=== PATIENT | male | born 1945 | race Caucasian/White ===

== ENCOUNTER 2017-10-04 16:59 | Inpatient (IN) ==
--- NOTE | 2017-10-04 17:41 | Emergency Department Note ---
Disposition Clinical Impression: Elevated troponin Disposition: Admitted As Inpatient Condition: Fair Time of Disposition: 18:50 General Adult HPI - General Chief complaint: ED General Medical Stated complaint: High BP Time Seen by Provider: 10/04/17 17:06 Source: patient, EMS Limitations: no limitations Nursing Notes Reviewed: Yes Vital Signs Reviewed: Yes - History of Present Illness HPI Narrative: 71-year-old male presents emergency department via EMS from the OR. Patient went there with complaints of high blood pressure not complaining of any chest pain or any other symptoms. When evaluated there they did do basic lab work which showed an elevated troponin of 0.06 as I said no lab troponin came back at 0.085. This is the main reason they sent him over. Patient was given aspirin there. Patient has a history of lupus as well as chronic kidney disease due to lupus. He also has high blood pressure due to lupus. He recently was changed blood pressure medications partially 3 weeks ago and he had normal blood pressures approximately 1 week ago. His daughter checked his blood pressure yesterday and it was 200 systolic and also worried that it made him come in today. At the OR patient did have a blood pressure over 200 systolic. Due to this they diagnosed him with hypertensive urgency as well as the elevated troponin and transferred him here. Patient again when coming here is complaining of no chest pain or nausea or vomiting or shortness of breath. He says he feels fine as having any pain anywhere other than his normal rheumatoid arthritis. Patient's had no nausea or vomiting. He has no cardiac history never had a stress test never seen a physical therapist aide. Patient otherwise has no complaints including headache, blurry vision, neck pain, back pain, chest pain, shortness of breath, abdominal pain, pain or tingling going down the arms or legs, pain with urination, change in bowel movements, generalized weakness, fevers. Pain Scale: 0 - Related Data Allergies Allergy/AdvReac Type Severity Reaction Status Date / Time NSAIDS (Non-Steroidal Allergy Hives Verified 10/04/17 17:15 Anti-Inflamma Review of Systems: 10 point review of systems done and negative unless otherwise stated in history of present illness. All systems ED: reviewed and negative except as stated. Review of Systems: As Per HPI Past Medical History - Past Medical History Attestation: Yes The following information was validated with the patient. Medical history: Reports: arthritis, hypertension, RA, renal disease Psychiatric history: Reports: no psych history - Social History Smoking Status: Never smoker Smokeless Tobacco Status: Yes Alcohol use: Reports: none Drug use: Reports: none Physical Exam - General Limitations: no limitations General appearance: alert, in no apparent distress - Head Head exam: atraumatic, normocephalic, normal inspection - Eye Eye exam: Present: normal appearance, PERRL, EOMI - ENT ENT exam: normal exam, normal oropharynx, mucous membranes moist - Neck Neck exam: Present: normal inspection, full ROM, trachea midline - Chest Chest inspection: Present: normal inspection, symmetric chest wall rise - Respiratory Respiratory exam: Present: normal lung sounds bilaterally - Cardiovascular Cardiovascular exam: Present: regular rate, normal rhythm, normal heart sounds - Abdominal Exam Abdominal exam: Present: soft, Non-Tender. Absent: tenderness, distention, guarding, rebound, rigidity - Extremities Exam Extremities exam: Present: normal inspection, full ROM. Absent: tenderness, pedal edema - Expanded Lower Extremity Exam Neurovascular/Tendon exam: Absent: motor deficit, sensory deficit, tendon deficit - Back Exam Back exam: Present: normal inspection, full ROM. Absent: tenderness, CVA tenderness (R), CVA tenderness (L) - Neurological Exam Neurological exam: Present: alert, oriented X3 - Skin Skin exam: Present: warm, dry, intact, normal color Course Course Narrative: 71-year-old male presents emergency room via EMS from the OR for elevated troponin hypertension. Patient's labs are all done at the OR as well as chest x -ray. We will repeat an EKG here. Patient was hypertensive when he came in at 200 systolic with the elevated troponin patient does meet hypertensive emergency so we will treat him with 10 mg labetalol on the IV. Patient's most likely disposition will be admission for further evaluation. Vital Signs Temperature 98.1 F 10/04/17 17:07 Pulse Rate 62 10/04/17 17:07 Respiratory Rate 20 10/04/17 17:07 Blood Pressure 210/108 10/04/17 17:07 O2 Sat by Pulse Oximetry 97 10/04/17 17:07 Temperature 99.1 F 10/04/17 21:02 Pulse Rate 66 10/04/17 21:02 Respiratory Rate 14 10/04/17 21:02 Blood Pressure 189/82 10/04/17 21:02 O2 Sat by Pulse Oximetry 97 10/04/17 21:02 Oxygen Delivery Oxygen Delivery Room Air Medical Decision Making - MDM Narrative Medical decision making narrative: 71-year-old male presented to the emergency department complaining of elevated troponin here is not having any chest pain. Patient was sent here from the [facility] via EMS. He has a history of lupus. He also is hypertensive there at over 200 systolic. When he arrived here he was 200 systolic as well. At this time we are going to give him labetalol to help lower his blood pressure. It was repeated and it was 180 systolic. Patient has no chest pain at this time. 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 Patient did have a urine protein 300. Elevated BUNs of 44. Patient did have new EKG changes of T-wave depressions in lead V5 and V6. There is no old EKG to compare with to see if these are new. Due to the elevated troponin and EKG changes patient needed to be admitted for further evaluation. Patient was admitted to the hospitalist service in stable condition. I spoke with who agreed to set the patient to their service. Patient is now admitted in stable condition. Chest x-ray was done at the OR which read as no acute findings. The OR's chart was going with the patient to the floor. - Medical Records Medical records reviewed: Yes I reviewed the patient's medical records. - Lab Data Lab results reviewed: Yes I reviewed the patient's lab results. - Radiology Data Radiology results reviewed: Yes I reviewed the patient's radiology results. - EKG Data EKG #1 EKG attestation: Yes I reviewed and interpreted this EKG. Attestation Statement - Attestation Attestation: I, Guillermo Valdivia, examined this patient and my medical decision-making was reviewed with the MANAGER ENROLLMENT/PA/Advanced Practice Nurse/Resident Physician. I agree with the documented findings, disposition and treatment plan as described except to the extent set forth below. 8-year-old male presents emergency Department from the OR with concerns of elevated blood pressure and elevated troponin. Daughter noted BP to be high last night and this morning and brought him to the OR for further care and evaluation. Patient had elevated troponin at 0.06 on evaluation at the OR. Patient has no chest pain during my evaluation the emergency department. Patient has a history of chronic renal failure. Labetalol was initially ordered to control BP for a possible hypertensive emergency. Patient BP however improved prior to giving the medication to a systolic of 188. Patient will be admitted to the hospital for further care and evaluation.
[2017-10-04] MEDS: *HR* Labetalol 100 MG/20 ML MDV IVP ONE ×2 (18:10→18:13)
[2017-10-04] MEDS ORDERED: carBAMazepine 200 MG TABLET PO SCH (21:00)
[2017-10-04] MEDS ORDERED: Naloxone 0.4 MG/ML INJ IVP PRN (21:12)
[2017-10-04] MEDS ORDERED: CarBAMazepine 100 MG TABLET PO SCH (21:15)
--- NOTE | 2017-10-04 21:19 | Internal Med History&Physical ---
<Mir Vo - Last Filed: 10/04/17 21:16> Date of Encounter: 10/04/17 Time of Encounter: 21:16 Assessment and Plan (1) Asymptomatic hypertensive urgency Current visit: Yes Status: Acute Patient reports having systolic blood pressure in the 180s over the last 4 days. Additionally, reports a gradual increase in blood pressure over the last month. He denies missing any doses of medication. Blood pressure at 1800 systolic blood pressure 180s. He does have an elevation in serum creatinine however he does have CKD stage III , does not appear to be Hypertensive emergency Slowly decreased blood pressure to avoid cerebral or myocardial ischemia associated with rapid reduction Target SBP 150-170, target DBP greater than 80 less than 100-hydralazine every 2 hours 5 mg IV push Restart all home blood pressure medications Serial troponins and get EKG in the morning Continuous telemetry and every 4 hours vitals (2) Elevated troponin Current visit: Yes Status: Acute Likely due to demand ischemia. In having hypertensive urgency the last 4 days. Also has history of PKD stage III. Denies any chest pain or discomfort, no prior cardiac history and risk factors include smoking and hypertension. Given his clinical picture does not appear to be having a coronary event continue to further monitor troponins Serial troponin Continuous telemetry EKG in the morning (3) Hyperkalemia Current visit: Yes Status: Acute Hyperkalemic with potassium of 5.2. Has stage III kidney disease. Asymptomatic at this time, reporting no tachycardia, palpitations, numbness tingling, muscle cramping. A one-time dose of Kayexalate 15 g now and recheck potassium in the morning (4) CKD (chronic kidney disease) stage 3, GFR 30-59 ml/min Current visit: Yes Status: Acute History of CK D stage III. [facility] Today's serum creatinine 2.45. We have no prior baseline. Recheck serum creatinine in the morning (5) Tobacco abuse Current visit: Yes Status: Acute Tobacco cessation counseling provided Denies need for nicotine patch (6) DVT prophylaxis Current visit: Yes Status: Acute Heparin 5000 units subcutaneous twice a day Internal Medicine - H&P: HPI Chief complaint: Hypertensive urgency Admitted From: Home Plans for Post Hospital Care: Home History of present illness: Mr. Stacy is a 71 year old male with PMH of CJD stage III, HTN, GERD, BPH, RA and lupus. He presents today via EMS from the [facility]. Patient complains that her last 4 days he has had high blood pressure with systolic blood pressure in the 180s and not improving with taking his home medication. He denies CP, fever , chills, diaphoresis, nausea . Mild to [facility] initial lab work showed an elevation in troponin 0.06 and 0.085. [facility] here for further monitoring. He has no prior cardiac history. He is also reporting mild shortness of breath. Past Med Surg Social Fam HX - Past Medical History Medical history: arthritis, hypertension, RA, renal disease, other Psychiatric history: no psych history - Past Surgical History Surgical History: appendectomy - Social History Smoking Status: Never smoker Smokeless Tobacco Status: Yes Alcohol use: none Drug use: none Internal Medicine - H&P: Meds 3 Allergy/AdvReac Type Severity Reaction Status Date / Time NSAIDS (Non-Steroidal Allergy Hives Verified 10/04/17 17:15 Anti-Inflamma All Systems PM: A 10-system review of systems was performed and is negative for pertinent findings except as documented above in the HPI. - Constitutional Constitutional: no chills, no fever(s), no night sweats - EENT Eyes: no change in vision, no discharge, no pain, no photophobia Ears: no ear discharge, no ear pain, no tinnitus Nose, mouth and throat: no dysphagia, no nasal discharge, no neck pain, no sore throat - Cardiovascular Cardiovascular ROS IM: dyspnea on exertion, lightheadedness, no chest pain, no diaphoresis, no dyspnea, no palpitations, no syncope - Respiratory Respiratory: dyspnea on exertion, no cough, no dyspnea, no wheezing, no excessive phlegm production - Gastrointestinal Gastrointestinal: no abdominal pain, no diarrhea, no hematemesis, no hematochezia, no melena, no nausea, no vomiting - Musculoskeletal Musculoskeletal ROS IM: no numbness, no tingling - Integumentary Integumentary IM: no rash, no unusual bruising - Neurological Neurological ROS: no confusion, no convulsions, no focal weakness, no numbness, no tingling, no tremor(s) - Hematologic/Lymphatic Hematologic/Lymphatic: no easy bruising - Constitutional Vitals: Temp Pulse Resp BP Pulse Ox 99.1 F 66 14 189/82 97 10/04/17 21:02 10/04/17 21:02 10/04/17 21:02 10/04/17 21:02 10/04/17 21:02 General appearance: Present: cooperative, A&O X 3, no acute distress, answers questions appropriately - Head Head exam: Present: atraumatic, normocephalic - Eye Eye exam: Present: PERRL, conjuntiva pink, sclera anicteric Pupils: Present: PERRL - Neck Neck exam general surgery: Present: supple, trachea midline. Absent: lymphadenopathy - Respiratory Respiratory exam: Present: CTAB. Absent: accessory muscle use, rales, rhonchi, wheezes - Cardiovascular Cardiovascular exam: Present: RRR, +S1, +S2. Absent: diastolic murmur, gallop, rubs, systolic murmur - GI/Abdominal GI/Abdominal exam: Present: normal bowel sounds, soft, no peritoneal signs. Absent: distended, tenderness - Extremities Exam Extremities exam: Present: warm, radial pulses palpable and symmetrical. Absent : calf tenderness, cyanotic, pedal edema - Neurological Exam Neurological exam: Present: CN II-XII intact, oriented X3, no focal deficits. Absent: pronater drift, facial droop, speech deficit - Skin Skin exam: Present: dry, intact Internal Med - H&P Results - EKG Data -: EKG Interpreted by Myself EKG shows normal: sinus rhythm Rate: normal - EKG Data Prior EKG available for review: yes Interpretation IM: normal EKG EKG comments: 10/04/17 21:20 Normal sinus rhythm first degree AV block rate of 62 <Louis Savage - Last Filed: 10/04/17 22:04> Date of Encounter: 10/04/17 Internal Medicine - H&P: HPI History of present illness: Mr. Stacy is a 71 year old male All Systems PM: A 10-system review of systems was performed and is negative for pertinent findings except as documented above in the HPI. - Constitutional Vitals: Temp Pulse Resp BP Pulse Ox 99.1 F 66 14 189/82 97 10/04/17 21:02 10/04/17 21:02 10/04/17 21:02 10/04/17 21:02 10/04/17 21:02 Internal Med - H&P Results - Labs Labs: Cardiac Enzymes 10/04/17 Range/Units 21:27 Troponin I 0.09 H* (0-0.03) ng/mL - Attending Attestation I have personally performed a face to face evaluation on this patient. I have reviewed and agree with the care plan. History and Exam by me shows: Visits with [facility], [facility], [place] Takes BP daily, BP high yesterday 202/140 and today, NO chest pain but admits to headache Trop 0.085 leak likely 2/2 to increased afterload from BP Reports high BP in the last 6 weeks. Takes 3-4 BP med daily but don't know meds on interview EKG reviewed by self with NSR, rate 62, 1st degree HB ST depression V5,6 A/P - Admit to restart BP med, prn IV hydralazine. Avoid lowering BP too quickly Keep SBP 160-180s, DBP not less than 80 over the first 24 hours. Continue to lower slowly over next 48 hour. - Floor cannot do IV gtt therapy - Close monitoring
[2017-10-04] MEDS: carBAMazepine 200 MG TABLET PO SCH ×2 (23:30→23:55)
[2017-10-04] MEDS: CarBAMazepine 100 MG TABLET PO SCH ×2 (23:31→23:55)
[2017-10-05] MEDS ORDERED: *HR* Heparin 5,000 UNIT/ML VIAL SQ SCH (06:00)
[2017-10-05] MEDS ORDERED: Famotidine 20 MG TABLET PO SCH (07:30)
[2017-10-05 08:25] VITALS: BP 194/92
[2017-10-05] MEDS ORDERED: Acetaminophen 325 MG TABLET PO PRN (08:43)
[2017-10-05] MEDS ORDERED: Ondansetron ODT 4 MG TAB.RAPDIS SL PRN (08:44)
[2017-10-05] MEDS ORDERED: amLODIPine 5 MG TABLET PO SCH (09:00)
[2017-10-05] MEDS ORDERED: carBAMazepine 200 MG TABLET PO SCH (09:00)
--- NOTE | 2017-10-07 16:57 | Electrocardiograph Report ---
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
--- NOTE | 2017-10-07 17:11 | Electrocardiograph Report ---
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
== END 2017-10-05 10:38 | disposition left against medical advice (07) | DRG 305 ==
LOC: 3BNU 16:59 → EMEROO 16:59 → 3BNU 19:45
PROVIDERS: ADMIT Internal Medicine; ATTEND Registered Nurse